=== PATIENT | male | born 1995 | race Caucasian/White ===

== ENCOUNTER 2021-08-29 16:40 | Emergency (ER) | payer OTHER ==
[~2021-08-29] VITALS: Ht 193 cm; Wt 108.9 kg
[2021-08-29 18:23] LABS: ABSOLUTE NEUTROPHILS 6.7 thou/uL (1.4-8.2); BASOPHILS 0.2 % (0.0-2.0); EOSINOPHILS 0.1 % (0.0-3.0); HEMATOCRIT 37.3 % (42.0-52.0); LYMPHOCYTES 11.8 % (24.0-44.0); MCHC 34.9 g/dL (28.0-37.0); MCV 103.3 fL (80.0-100.0); MONOCYTES 4.9 % (1.0-8.0); PLATELET COUNT 116 thou/uL (150-400); RBC 3.61 mil/uL (4.50-6.00); RDW 16.8 % (10.5-14.5); WBC 8.1 thou/uL (4.0-11.0)
[2021-08-29 18:35] LABS: CALCIUM 8.8 mg/dL (8.5-10.1); CREATININE 0.7 mg/dL (0.7-1.3); POTASSIUM 3.1 mmol/L (3.5-5.1)
[2021-08-29 18:37] LABS: INR 1.25; PROTIME 13.5 Seconds (10.5-12.1)
[2021-08-29 18:41] LABS: ALBUMIN 3.3 g/dL (3.4-5.0); DIRECT BILIRUBIN 2.2 mg/dL (<0.1-0.2); TOTAL BILIRUBIN 3.8 mg/dL (0.2-1.0)
[2021-08-29 19:41] LABS: URINE BLOOD NEGATIVE (Negative); URINE CLARITY CLEAR; URINE COLOR YELLOW; URINE GLUCOSE-RANDOM* NEGATIVE (Negative); URINE KETONES NEGATIVE (Negative); URINE LEUKOCYTES-REFLEX NEGATIVE (Negative); URINE NITRITE-REFLEX NEGATIVE (Negative); URINE PROTEIN (DIPSTICK) NEGATIVE (Negative); URINE SPECIFIC GRAVITY <= 1.005 (1.005-1.035)
[2021-08-29 20:11] LABS: URINE BILIRUBIN 1+ (Negative)
[2021-08-29 20:12] LABS: ICTOTEST (BILI CONFIRMATORY) Positive (Negative)
[2021-08-29 21:09] VITALS: BP 120/67
--- NOTE | 2021-08-30 07:25 | EKG ---
[address] [place] [address] ELECTROCARDIOGRAM REPORT Name: DANNIE MELVIN Room #: PAL Perez#: [id number] Admission: 08/29/21 Attend Phys: Discharge: 08/29/21 Date of : [birth year] Report #: [id number] [facility] ED Test Date: 2021-08-29 Test Time: 19:05:31 Pat Name: DANNIE MELVIN Department: Room: Gender: Door Repairman: mpasacha : 1995 Requested By: Kale Bartlett Order Number: [id number] MD: Lev Ramos Measurements Intervals [place] Rate: 68 P: -6 KS: 144 QRS: 43 QRSD: 89 T: 35 QT: 430 QTc: 458 Interpretive Statements Sinus rhythm No previous ECG available for comparison Electronically Signed On 08-30-2021 7:25:12 [employer] by Lev Ramos [email or web address] <ELECTRONICALLY SIGNED> By: Lev Ramos MD, [facility] 08/30/21 0725 1905 1905 Lev Ramos MD, FACC /EPI
[2021-08-30 10:08] LABS: HAV IgM AB (ANTI-HAV IgM) Negative (Negative); HEPATITIS B SURFACE AG Negative (Negative)
[2021-09-03 09:47] LABS: HEPATITIS C VIRUS AB <0.1
== END 2021-08-29 21:11 | disposition home or self-care (01) ==
LOC: ER 16:40
PROVIDERS: Nurse Practitioner
DX: K70.10 Alcoholic hepatitis without ascites (principal); Z20.822 Contact with and (suspected) exposure to COVID-19; R53.83 Other fatigue; F10.10 Alcohol abuse, uncomplicated